=== PATIENT | female | born 1980 | race African-American/Black ===

== ENCOUNTER 2017-07-14 17:41 | Emergency (ER) | payer MEDICAID ==
[~2017-07-14] VITALS: Ht 177.8 cm; Wt 69.7 kg
[~2017-07-14 17:41] MED LIST: CLIN300C8 PO
[2017-07-14 18:31] LABS: CHLORIDE 103 mmol/L (98-107)
[2017-07-14 18:41] LABS: ALANINE AMINOTRANSFERASE 20 U/L (12-78); ALBUMIN 4.1 g/dL (3.4-5.0); ALKALINE PHOSPHATASE 58 U/L (45-117); ANION GAP 7 mmol/L (5-15); BILIRUBIN,TOTAL 0.2 mg/dL (0.2-1.0); CALCIUM 8.7 mg/dL (8.5-10.1); CREATININE 1.03 mg/dL (0.55-1.02)
[2017-07-14 18:42] LABS: BASOPHILS # (AUTO) 0.04 x10^3/uL (0-0.1); BASOPHILS % (AUTO) 1 % (0-1); EOSINOPHILS # (AUTO) 0.03 x10^3/uL (0-0.4); EOSINOPHILS % (AUTO) 0 % (1-7); LYMPHOCYTES # (AUTO) 3.97 x10^3/uL (1-3.4); LYMPHOCYTES % (AUTO) 42 % (22-44); MD NO; MEAN CORPUSCULAR HEMOGLOBIN 23.8 pg (27.0-34.8); MEAN CORPUSCULAR HGB CONC 32.5 g/dL (32.4-35.8); MEAN CORPUSCULAR VOLUME 73.2 fL (80-100); MEAN PLATELET VOLUME 8.1 fL (7.4-10.4); MONOCYTES # (AUTO) 0.74 x10^3/uL (0.2-0.8); MONOCYTES % (AUTO) 8 % (2-9); NEUTROPHILS # (AUTO) 4.72 x10^3/uL (1.8-6.8); NEUTROPHILS % (AUTO) 50 % (42-75); PLATELET COUNT 336 x10^3/uL (130-400); RED BLOOD COUNT 5.71 x10^6/uL (3.82-5.3); RED CELL DISTRIBUTION WIDTH 15.4 % (9.6-15.2)
[2017-07-14 18:58] LABS: MICROSCOPIC NOT IND
[2017-07-14] MEDS ORDERED: ONDANSETRON ODT 4 MG ONE ×2 (18:59→21:21)
[2017-07-14] MEDS ORDERED: KETOROLAC 30 MG/1 ML ONE (18:59)
[2017-07-14] MEDS ORDERED: ONDANSETRON ODT 4 MG PO ONE (19:00)
[2017-07-14] MEDS ORDERED: KETOROLAC 30 MG/1 ML IM ONE (19:00)
[2017-07-14 19:07] LABS: CULTURE INDICATED? NO
[2017-07-14] MEDS ORDERED: HYDROmorphone 1 MG/ML, 1ML IM ONE (20:00)
[2017-07-14] MEDS ORDERED: HYDROmorphone 2 MG/ML, 1ML ONE (20:02)
[2017-07-14] MEDS ORDERED: LIDOCAINE-MPF 1%, 2ML ONE (20:25)
[2017-07-14] MEDS ORDERED: AZITHROMYCIN 500 MG TABLET ONE (20:25)
[2017-07-14] MEDS ORDERED: CEFTRIAXONE 250 MG ONE (20:25)
[2017-07-14 20:27] LABS: CLUE CELLS NONE SEEN (NONE SEEN); WET PREP WBCS FEW (FEW)
[2017-07-14] MEDS ORDERED: AZITHROMYCIN 500 MG TABLET PO ONE (20:30)
[2017-07-14] MEDS ORDERED: CEFTRIAXONE 1,000 MG IM ONE (20:30)
[2017-07-14 20:36] VITALS: BP 111/68
== END 2017-07-14 21:32 | disposition home or self-care (01) ==
LOC: ED 20:52
DX: N72 Inflammatory disease of cervix uteri (principal); N73.0 Acute parametritis and pelvic cellulitis; K21.9 Gastro-esophageal reflux disease without esophagitis; F17.200 Nicotine dependence, unspecified, uncomplicated
CPT/HCPCS: 36415; 76830; 80053; 81003; 83690; 84703; 85025; 87210; 87491; 87591; 87808; 96372; 99285; J0696; J1170; J1885; Q0162

== ENCOUNTER 2018-06-29 15:09 | Emergency (ER) | payer MEDICAID ==
[~2018-06-29] VITALS: Ht 177.8 cm; Wt 64.6 kg
[2018-06-29 16:29] LABS: CULTURE INDICATED? YES; HCG UR SG 1.022 (1.003-1.030); MICROSCOPIC INDICATED
[2018-06-29] MEDS ORDERED: PHENAZOPYRIDINE 200 MG TABLET PO ONE (16:30)
[2018-06-29] MEDS ORDERED: PHENAZOPYRIDINE 200 MG TABLET ONE ×2 (16:36→16:43)
[2018-06-29] MEDS ORDERED: CEFTRIAXONE 250 MG ONE (16:36)
[2018-06-29] MEDS ORDERED: AZITHROMYCIN 500 MG TABLET ONE (16:36)
[2018-06-29] MEDS ORDERED: LIDOCAINE-MPF 1%, 5ML ONE (16:37)
[2018-06-29 16:46] LABS: CLUE CELLS NONE SEEN (NONE SEEN); WET PREP WBCS NONE SEEN (FEW)
[2018-06-29] MEDS ORDERED: AZITHROMYCIN 250 MG TABLET PO ONE (17:00)
[2018-06-29] MEDS ORDERED: CEFTRIAXONE 250 MG IM ONE (17:00)
[2018-06-29 17:21] VITALS: BP 122/68
== END 2018-06-29 17:23 | disposition home or self-care (01) ==
LOC: ED 17:05
DX: N30.00 Acute cystitis without hematuria (principal); A54.9 Gonococcal infection, unspecified; A56.8 Sexually transmitted chlamydial infection of other sites; K21.9 Gastro-esophageal reflux disease without esophagitis
CPT/HCPCS: 81001; 81025; 87086; 87210; 87491; 87591; 87808; 96372; 99283; J0696

== ENCOUNTER 2019-01-29 00:16 | Emergency (ER) | payer MEDICAID ==
[~2019-01-29] VITALS: Ht 175.3 cm; Wt 65.2 kg
[2019-01-29 00:55] LABS: MEAN CORPUSCULAR HEMOGLOBIN 23.5 pg (27.0-34.8); MEAN CORPUSCULAR HGB CONC 31.8 g/dL (32.4-35.8); MEAN CORPUSCULAR VOLUME 73.8 fL (80-100); MEAN PLATELET VOLUME 8.1 fL (7.4-10.4); PLATELET COUNT 346 x10^3/uL (130-400); RED BLOOD COUNT 5.42 x10^6/uL (3.82-5.3); RED CELL DISTRIBUTION WIDTH 14.8 % (9.6-15.2)
[2019-01-29 00:56] LABS: MICROSCOPIC NOT IND
--- NOTE | 2019-01-29 00:56 | NUR ---
pt in hospital gown. pt placed on pelvic gurney, labs have been drawn. urine sample walked to lab. pelvic cart in room, ready for pelvic exam.
[2019-01-29 00:58] LABS: CULTURE INDICATED? NO
[2019-01-29 01:04] LABS: ALANINE AMINOTRANSFERASE 18 U/L (12-78); ALBUMIN 3.9 g/dL (3.4-5.0); ANION GAP 8 mmol/L (5-15); CALCIUM 8.7 mg/dL (8.5-10.1); CHLORIDE 104 mmol/L (98-107); CREATININE 1.16 mg/dL (0.55-1.02)
--- NOTE | 2019-01-29 01:05 | NUR ---
PT RESTING CALMLY, MONITORS IN PLACE, SIDERAI SUP X2, CALL LIGHT WITHIN REACH. AWAITING LAB RESULTS
[2019-01-29 01:07] LABS: CLUE CELLS NONE SEEN (NONE SEEN)
[2019-01-29 01:08] LABS: ALKALINE PHOSPHATASE 70 U/L (45-117); BILIRUBIN,TOTAL 0.2 mg/dL (0.2-1.0); TOTAL PROTEIN 7.7 g/dL (6.4-8.2)
[2019-01-29 01:09] LABS: WET PREP WBCS NONE SEEN (FEW)
[2019-01-29 01:32] LABS: MD YES
[2019-01-29 01:36] LABS: EOS#(MANUAL) 0.08 x10^3/uL (0.0-0.4); EOS% (MANUAL) 1 % (1-7); LYMPHS% (MANUAL) 62 % (22-44); MONOS#(MANUAL) 0.24 x10^3/uL (0.3-2.7); MONOS% (MANUAL) 3 % (2-9); SEG#(MANUAL) 2.69 x10^3/uL (1.8-6.8); SEGS% (MANUAL) 34 % (42-75)
[2019-01-29 01:37] LABS: <PLATELET ESTIMATE> ADEQUATE; <PLT MORPHOLOGY> NORMAL PLT MORPH; <RBC MORPHOLOGY> NORMAL
[2019-01-29 02:02] VITALS: BP 130/85
== END 2019-01-29 02:11 | disposition home or self-care (01) ==
LOC: ED 00:54
DX: R10.32 Left lower quadrant pain (principal); R10.2 Pelvic and perineal pain; K21.9 Gastro-esophageal reflux disease without esophagitis; F17.200 Nicotine dependence, unspecified, uncomplicated
CPT/HCPCS: 36415; 80053; 81003; 84703; 85025; 86592; 87210; 87491; 87591; 87808; 99283

== ENCOUNTER 2019-03-30 15:16 | Emergency (ER) | payer MEDICAID ==
[~2019-03-30] VITALS: Ht 175.3 cm; Wt 66.0 kg
[2019-03-30] MEDS ORDERED: MECLIZINE CHEWABLE 25 MG TAB PO ONE (18:00)
[2019-03-30] MEDS ORDERED: MECLIZINE CHEWABLE 25 MG TAB ONE (18:04)
--- NOTE | 2019-03-30 18:12 | NUR ---
medicated per emar
[2019-03-30] MEDS ORDERED: ONDANSETRON ODT 8 MG PO ONE (18:30)
--- NOTE | 2019-03-30 18:48 | NUR ---
with reassessment patient reports "room spinning while at rest symptoms improved from 10/10 pre-medication to 7/10" Patient still too dizzy to stand. However, tolerating po fluids Provider made aware-provider to order further tests
--- NOTE | 2019-03-30 18:50 | NUR ---
report to Giorgio JACKSON
[2019-03-30] MEDS ORDERED: ONDANSETRON ODT 4 MG ONE ×2 (18:54→19:00)
--- NOTE | 2019-03-30 19:44 | NUR ---
RN TRIED TO AMBULATE PT, PT STOOD AT BED SIDE AND ALMOST FELL OVER. RN SAT PT BACK IN BED WITHOUT INCIDENT.
[2019-03-30 19:48] VITALS: BP 118/76
[2019-03-30 20:19] LABS: ALBUMIN 3.5 g/dL (3.4-5.0); ANION GAP 4 mmol/L (5-15); CALCIUM 8.5 mg/dL (8.5-10.1); CHLORIDE 109 mmol/L (98-107); CREATININE 1.18 mg/dL (0.55-1.02)
[2019-03-30 20:34] LABS: MEAN CORPUSCULAR HGB CONC 31.2 g/dL (32.4-35.8); MEAN PLATELET VOLUME 8.2 fL (7.4-10.4); PLATELET COUNT 315 x10^3/uL (130-400); RED BLOOD COUNT 5.56 x10^6/uL (3.82-5.3); RED CELL DISTRIBUTION WIDTH 14.4 % (9.6-15.2)
[2019-03-30 20:41] LABS: BASOPHILS # (AUTO) 0.03 x10^3/uL (0-0.1); BASOPHILS % (AUTO) 0 % (0-1); EOSINOPHILS # (AUTO) 0.05 x10^3/uL (0-0.4); EOSINOPHILS % (AUTO) 1 % (1-7); LYMPHOCYTES # (AUTO) 3.06 x10^3/uL (1-3.4); LYMPHOCYTES % (AUTO) 42 % (22-44); MD SCAN; MONOCYTES # (AUTO) 0.52 x10^3/uL (0.2-0.8); MONOCYTES % (AUTO) 7 % (2-9); NEUTROPHILS # (AUTO) 3.61 x10^3/uL (1.8-6.8); NEUTROPHILS % (AUTO) 50 % (42-75)
--- NOTE | 2019-03-30 20:52 | NUR ---
pt resting in bed with family at pt side, pt stated "she just wants to go home and lay down at home and wants to be discharged katie"
== END 2019-03-30 21:14 | disposition home or self-care (01) ==
LOC: ED 21:12
DX: H81.399 Other peripheral vertigo, unspecified ear (principal); H81.10 Benign paroxysmal vertigo, unspecified ear; F17.200 Nicotine dependence, unspecified, uncomplicated; K21.9 Gastro-esophageal reflux disease without esophagitis
CPT/HCPCS: 36415; 80048; 82040; 85025; 93005; 99284; Q0162

== ENCOUNTER 2019-06-01 23:39 | Emergency (ER) | payer MEDICAID ==
[~2019-06-01] VITALS: Ht 175.3 cm; Wt 65.2 kg
[2019-06-01 23:41] VITALS: BP 117/78
[2019-06-02] MEDS ORDERED: PROPARACAINE OPHTH 0.5%, 15ML ONE (00:54)
[2019-06-02] MEDS ORDERED: FLUORESCEIN OPHTHALMIC 1 MG STRIP ONE (00:54)
[2019-06-02] MEDS ORDERED: PROPARACAINE OPHTH 0.5%, 15ML EACHEYE ONE (01:00)
[2019-06-02] MEDS ORDERED: FLUORESCEIN OPHTHALMIC 1 MG STRIP EACHEYE ONE (01:00)
== END 2019-06-02 01:14 | disposition home or self-care (01) ==
LOC: ED 06-02 01:00
DX: H10.022 Other mucopurulent conjunctivitis, left eye (principal); K21.9 Gastro-esophageal reflux disease without esophagitis
CPT/HCPCS: 99283

== ENCOUNTER 2019-06-05 10:42 | Emergency (ER) | payer MEDICAID ==
[~2019-06-05] VITALS: Ht 175.3 cm; Wt 64.0 kg
[2019-06-05 11:17] VITALS: BP 100/63
--- NOTE | 2019-06-05 11:28 | NUR ---
PT HERE WITH C/O URINARY PAIN, STATES IT "FEELS LIKE A BLADDER INFECTION." AMBULATORY TO RESTROOM FOR CLEAN CATCH URINE.
--- NOTE | 2019-06-05 12:02 | NUR ---
LAB AT BEDSIDE.
[2019-06-05 12:09] LABS: HCG UR SG 1.018 (1.003-1.030); MICROSCOPIC AUTO
[2019-06-05 12:14] LABS: CULTURE INDICATED? YES
[2019-06-05 12:25] LABS: ALBUMIN 3.4 g/dL (3.4-5.0); ANION GAP 7 mmol/L (5-15); CALCIUM 8.6 mg/dL (8.5-10.1); CHLORIDE 107 mmol/L (98-107)
[2019-06-05 12:26] LABS: CREATININE 1.09 mg/dL (0.55-1.02)
[2019-06-05] MEDS ORDERED: CEFTRIAXONE 1,000 MG ONE (12:27)
[2019-06-05] MEDS ORDERED: CEFTRIAXONE 1,000 MG IM ONE (12:30)
--- NOTE | 2019-06-05 12:33 | NUR ---
PT MEDICATED PER ORDERS.
[2019-06-05 12:50] LABS: MEAN CORPUSCULAR HEMOGLOBIN 22.9 pg (27.0-34.8); MEAN CORPUSCULAR HGB CONC 31.7 g/dL (32.4-35.8); MEAN PLATELET VOLUME 8.6 fL (7.4-10.4); PLATELET COUNT 311 x10^3/uL (130-400); RED BLOOD COUNT 5.42 x10^6/uL (3.82-5.3); RED CELL DISTRIBUTION WIDTH 14.4 % (9.6-15.2)
[2019-06-05 12:52] LABS: BASOPHILS # (AUTO) 0.02 x10^3/uL (0-0.1); BASOPHILS % (AUTO) 0 % (0-1); EOSINOPHILS # (AUTO) 0.03 x10^3/uL (0-0.4); EOSINOPHILS % (AUTO) 1 % (1-7); LYMPHOCYTES # (AUTO) 1.64 x10^3/uL (1-3.4); LYMPHOCYTES % (AUTO) 28 % (22-44); MD SCAN; MONOCYTES # (AUTO) 0.85 x10^3/uL (0.2-0.8); MONOCYTES % (AUTO) 14 % (2-9); NEUTROPHILS # (AUTO) 3.36 x10^3/uL (1.8-6.8); NEUTROPHILS % (AUTO) 57 % (42-75)
--- NOTE | 2019-06-05 13:12 | NUR ---
Patient/Caregiver given discharge instructions and they have confirmed that they understand the instructions. Patient ambulatory with steady gait.
== END 2019-06-05 13:20 | disposition home or self-care (01) ==
LOC: ED 13:14
DX: N30.00 Acute cystitis without hematuria (principal); K21.9 Gastro-esophageal reflux disease without esophagitis; Z87.42 Personal history of other diseases of the female genital tract; Z87.891 Personal history of nicotine dependence
CPT/HCPCS: 36415; 80048; 81001; 81025; 82040; 85025; 87077; 87086; 87186; 96372; 99283; J0696

== ENCOUNTER 2019-10-25 17:57 | Emergency (ER) | payer MEDICAID ==
[~2019-10-25] VITALS: Ht 175.3 cm; Wt 64.0 kg
--- NOTE | 2019-10-25 18:33 | NUR ---
FIRE EATER: PT TO ROOM FROM ANGELIQUE ACOSTA
[2019-10-25 18:53] LABS: MICROSCOPIC NOT IND
[2019-10-25 19:13] LABS: HCG UR SG 1.012 (1.003-1.030)
--- NOTE | 2019-10-25 19:18 | NUR ---
C/O BURNING W/ URINATION, LOWER ABD PAIN - SX STARTED 4 DAYS AGO. NO MEDS TAKEN FOR SX.
[2019-10-25 19:21] VITALS: BP 101/63
[2019-10-25] MEDS ORDERED: CEFTRIAXONE 250 MG IM ONE (19:30)
[2019-10-25] MEDS ORDERED: AZITHROMYCIN 500 MG TABLET PO ONE (19:30)
--- NOTE | 2019-10-25 19:30 | NUR ---
PELVIC EXAM COMPLETED PER DR ONEAL W/ ASSISTANCE FROM THIS RN
[2019-10-25 19:35] LABS: WET PREP WBCS NONE SEEN (FEW)
[2019-10-25] MEDS ORDERED: AZITHROMYCIN 250 MG TABLET ONE (19:41)
[2019-10-25] MEDS ORDERED: CEFTRIAXONE 250 MG ONE (19:41)
--- NOTE | 2019-10-25 19:50 | NUR ---
PT MEDICATED PER EMAR
[2019-10-25 20:00] LABS: CLUE CELLS PRESENT (NONE SEEN)
== END 2019-10-25 20:36 | disposition home or self-care (01) ==
LOC: ED 20:31
DX: N34.1 Nonspecific urethritis (principal); R30.0 Dysuria; K21.9 Gastro-esophageal reflux disease without esophagitis; Z87.891 Personal history of nicotine dependence
CPT/HCPCS: 81003; 81025; 87210; 87491; 87591; 87808; 96372; 99283; J0696

== ENCOUNTER 2020-02-25 02:59 | Emergency (ER) | payer MEDICAID ==
[~2020-02-25] VITALS: Ht 175.3 cm; Wt 60.5 kg
[2020-02-25 03:03] VITALS: BP 104/71
[2020-02-25] MEDS ORDERED: ACETAMINOPHEN 500 MG TABLET PO ONE (03:30)
[2020-02-25] MEDS ORDERED: ACETAMINOPHEN 500 MG TABLET ONE (03:39)
--- NOTE | 2020-02-25 03:56 | NUR ---
PT SITTING IN BED, TALKING WITH FRIEND AT BEDSIDE.
--- NOTE | 2020-02-25 04:23 | NUR ---
Radiology called for eta of x-ray read. "They're reading it as we speak."
--- NOTE | 2020-02-25 04:24 | NUR ---
PT CONDITION UNCHANGED.
== END 2020-02-25 04:45 | disposition home or self-care (01) ==
LOC: ED 04:34
DX: S83.91XA Sprain of unspecified site of right knee, initial encounter (principal); K21.9 Gastro-esophageal reflux disease without esophagitis; F17.200 Nicotine dependence, unspecified, uncomplicated; X58.XXXA Exposure to other specified factors, initial encounter; Y93.89 Activity, other specified; Y92.89 Other specified places as the place of occurrence of the external cause; Y99.8 Other external cause status
CPT/HCPCS: 99283

== ENCOUNTER 2020-03-19 10:17 | Emergency (ER) | payer MEDICAID ==
[~2020-03-19] VITALS: Ht 175.3 cm; Wt 61.5 kg
[2020-03-19] MEDS ORDERED: KETOROLAC 30 MG/1 ML ONE (10:57)
[2020-03-19] MEDS ORDERED: KETOROLAC 30 MG/1 ML IM ONE (11:00)
--- NOTE | 2020-03-19 11:02 | NUR ---
ua sent bladder scan for retention sxs=40-50ml medicated per emar for bladder cramping at 03/01
--- NOTE | 2020-03-19 11:39 | NUR ---
pain improved to 3/10 no ua results posted yet-lab called to expedite
[2020-03-19 11:54] LABS: MICROSCOPIC INDICATED
[2020-03-19 12:13] VITALS: BP 99/63
== END 2020-03-19 12:15 | disposition home or self-care (01) ==
LOC: ED 10:46
DX: N30.00 Acute cystitis without hematuria (principal); R10.2 Pelvic and perineal pain; K21.9 Gastro-esophageal reflux disease without esophagitis; F17.200 Nicotine dependence, unspecified, uncomplicated
CPT/HCPCS: 81001; 87077; 87086; 96372; 99284; J1885; 87186